=== PATIENT | female | born 1960 | race Caucasian/White ===

== ENCOUNTER 2022-05-01 10:22 | Emergency (ER) | payer SELFPAY ==
[2022-05-01] MEDS ORDERED: Dextrose 5%-Lactated Ringers 1,000 ML IV STA (10:42)
[2022-05-01] MEDS ORDERED: Ondansetron 4 MG/2 ML SDV IVPUSH ONE (10:42)
[2022-05-01 11:31] LABS: CARBON DIOXIDE,CO2 27.1 mmol/L (21.0-32.0); POTASSIUM,K 3.8 mmol/L (3.5-5.1)
[2022-05-01 11:46] LABS: CORONAVIRUS COVID-19 NAA POSITIVE (NEGATIVE); INFLUENZA A NAA NEGATIVE (NEGATIVE); INFLUENZA B NAA NEGATIVE (NEGATIVE)
[2022-05-01] MEDS ORDERED: Iopamidol 755 MG/ML 500 ML Multipack Bottle IVPUSH STA (14:24)
== END 2022-05-01 15:25 | disposition home or self-care (01) ==
LOC: MW.ED 10:22
DX: U07.1 COVID-19 (principal); R11.2 Nausea with vomiting, unspecified; R91.1 Solitary pulmonary nodule
CPT/HCPCS: 0240U; 36415; 71045; 71275; 80053; 83605; 83735; 85025; 85610; 93005; 96361; 96374; 99285; J2405; J7121; Q9967